=== PATIENT | female | born 1990 | race Caucasian/White ===

== ENCOUNTER 2016-07-28 02:55 | Emergency (ER) | payer OTHER ==
--- NOTE | 2016-07-28 03:48 | ERNOTE ---
ENT HPI Date of Service: 07/28/16 Time Seen by Provider: 07/28/16 03:36 Source: patient, family - Immun/Allergies/Home Medications Immunizations: IMMUNIZATION HX Immunizations Up to Date Yes Allergies/Adverse Reactions: Allergies Allergy/AdvReac Type Severity Reaction Status Date / Time latex Allergy Verified 07/28/16 03:09 Pertussis Vaccines Allergy Verified 07/28/16 03:09 Home Medications: HOME MEDICATIONS NK [No Home Medication] 07/28/16 [Last Taken Unknown] - History of Present Illness Narrative: PT SAYS THERE IS SOMETHING IN HER RIGHT EAR CANAL, POSSIBLY FROM A PIECE OF HER PLASTIC EARRING. Review of Systems - Review of Systems Constitutional: Present: See HPI ENT: Present: See HPI All Other Systems: All systems neg except as marked - Patient's Past Medical History Patient History - Medical: No pertinent hx Patient History - Cardiac/Respiratory: No pertinent hx Patient History - Cancer: No Hx of Cancer Patient History - Surgical Procedures: T & A - Social History Living Situations: home Smoking Status: Never smoker Alcohol Use: none Drug Use: none - Immunizations Immunizations Up to Date: Yes Physical Exam - Physical Exam General Appearance: Present: wd/wn, alert, no apparent distress Ears, Nose, Throat: Present: normal except -, other - SMALL 2-3 MM PINK BALL THAT IS USED A PROTECTIVE TIP TO COVER AN EARRING POST IS BACK AGAINST TM DEEP IN THE RIGHT EAR CANAL NO OTHER ABNORMALITIY NOTED. I WILL NOT BE ABLE TO REACH IT OR GRAB ON TO THIS FOREIGN BODY WITH AN ALLIGATOR FORCEPS IN ITS PRESENT LOCATION. I WILL HAVE THE R.N. ATTEMPT TO IRRIGATE THE CANAL WITH WARM SALINE TO SEE IF IT DISLODGES. ED Progress - Vital Signs Vital Signs: Vital Signs 07/28/16 03:05 Temperature 37 C Pulse Rate 86 Respiratory 18 Rate Blood Pressure 127/79 O2 Sat by Pulse 100 Oximetry Plan - Plan Plan: THE SMALL BEAD WAS REMOVED BY THE NURSE DOING IRRIGATION WITH NO PROBLEMS TO THE PT Departure Clinical Impression: Ear foreign body Qualifiers: Encounter type: initial encounter Laterality: right Qualified Code(s): T16.1XXA - Foreign body in right ear, initial encounter - Departure Disposition: Home self-care Condition: Good Instructions: Ear Foreign Body, [id number] Additional Instructions: IT WAS SUCCESSFULLY REMOVED BY THE EAR IRRIGATION BY THE NURSE AND YOU SHOULD HAVE NO PROBLEM.
[2016-07-28 04:58] VITALS: BP 120/74
== END 2016-07-28 04:10 | disposition home or self-care (01) ==
LOC: ER 02:55
DX: S16.1XXA Strain of muscle, fascia and tendon at neck level, initial encounter (principal)